=== PATIENT | male | born 1985 | race Two or more races ===

== ENCOUNTER 2024-03-31 01:26 | Emergency (ER) | payer OTHER ==
[~2024-03-31] VITALS: Ht 160 cm; Wt 47.6 kg
[2024-03-31] MEDS ORDERED: ANALPRAM HC 2.530 GM RECTAL (03:15)
[2024-03-31] MEDS ORDERED: DEXAMETHASONE SODIUM PHOSPHATE 4 MG/ML VIAL IM ONE (03:15)
[2024-03-31] MEDS ORDERED: KETOROLAC TROMETHAMINE 60 MG VIAL IM ONE ×2 (03:15→03:37)
[2024-03-31] MEDS ORDERED: DEXAMETHASONE SODIUM PHOSPHATE 4 MG/ML VIAL ONE (03:38)
== END 2024-03-31 03:45 | disposition home or self-care (01) ==
LOC: ER 01:29
DX: K64.8 Other hemorrhoids (principal)